=== PATIENT | male | born 1955 | race Caucasian/White ===

== ENCOUNTER 2016-10-29 18:14 | Emergency (ER) | payer SELFPAY | END 2016-10-29 20:15 | disposition home or self-care (01) | LOC: ER1 18:14 | DX: S40.012A Contusion of left shoulder, initial encounter (principal); W22.09XA Striking against other stationary object, initial encounter; Y92.009 Unspecified place in unspecified non-institutional (private) residence as the place of occurrence of the external cause | CPT/HCPCS: 73030; 99283 ==